=== PATIENT | male | born 1975 | race Hispanic/Latino ===

== ENCOUNTER 2021-05-01 11:57 | Emergency (ER) | payer SELFPAY ==
[2021-05-01 12:41] LABS: Urine Blood 1+ (Negative); Urine Glucose 1+ (Negative); Urine Protein 2+ (Negative)
--- NOTE | 2021-05-01 12:48 | RAD REPORT ---
EXAM DESCRIPTION: CT - Stone Protocol - 05/01/2021 12:37 pm CLINICAL HISTORY: ABD PAIN COMPARISON: No comparisons TECHNIQUE: Axial 3 mm thick images were obtained without oral or IV contrast. The [id number] span s the entirety of the system including uppermost abdomen and lung bases. All CT scans are performed using dose optimization technique as appropriate and may include automated exposure control or mA/KV adjustment according to patient size. FINDINGS: Mild left-sided hydronephrosis is present down to the left UVJ where there is a 4 millimet er obstructing calculus. No other left-side obstructing or nonobstructing calculi. No right-sided hyd ronephrosis or right-sided calcification. No suspicious renal masses. Isodense masses and pyelonephri tis are not excluded on a stone protocol CT scan. No significant adrenal finding. Urinary bladder is fully contracted limiting detail. No bladder calculi. Imaged portions of the liver, spleen and pancreas show no suspicious findings on non-contrast imaging . No gallbladder or biliary tree abnormality identified. No suspicious bowel findings. No hernia, mass or bulky lymphadenopathy noted. No free air, free fluid or inflammatory stranding. No significant bony abnormality. A 7 millimeter noncalcified nodule is seen in the anterolateral right lower lobe (image 3/168). A 3 m illimeter noncalcified nodule is present in the lateral left lower lobe (image 2/168). No acute infil trate. No pneumothorax or pleural effusion. No pericardial thickening or effusion. Endplate degenerative changes are present in the lower thoracic spine. No acute bone finding identifi able. IMPRESSION: Mild left-sided hydronephrosis secondary to an obstructing 4 mm left UVJ calculus. Isodense masses and pyelonephritis are not excluded on stone protocol technique. Patient has 7 mm and 3 mm noncalcified pulmonary nodules in the lower lung mendoza. Zhannaischner 2017 re commendations would be follow-up imaging in 6 months with a 18-24 months imaging considered if the pa tient is low risk or obtained if the patient is high risk. Of note, the lung mendoza are only partially imaged. The patient could have other pulmonary nodules th at may be larger in size or have different imaging characteristics. Follow-up outpatient CT chest chay ging or lung cancer CT chest screening study could be performed as warranted.
[2021-05-01 12:53] LABS: Absolute Lymphocytes (CBC) 1.5 K/uL (0.7-4.9); Basophils % 0.5 % (0-1.3); Hematocrit 44.8 % (39.6-49.0); Lymphocytes % 16.5 % (15.3-44.8); MPV 7.8 fL (7.6-11.3); RBC Red Blood Cell Count 4.81 M/uL (4.33-5.43)
[2021-05-01 13:13] LABS: Albumin 3.7 g/dL (3.4-5.0); Bilirubin Direct 0.1 mg/dL (0-0.2); Bilirubin Total 0.5 mg/dL (0.2-1.0); Protein, Total 7.4 g/dL (6.4-8.2)
[2021-05-01] MEDS ORDERED: MORPHINE 4 MG/ML SYR ONE (13:33)
[2021-05-01] MEDS ORDERED: NA CHLORIDE 0.9% 500 ML ONE (13:33)
[2021-05-01] MEDS ORDERED: CEFTRIAXONE/SWI 1gm 1 GM/10 ML SYR ONE (13:33)
[2021-05-01] MEDS ORDERED: ONDANSETRON 4 MG/2 ML VIAL ONE (13:33)
--- NOTE | 2021-05-01 14:09 | EDPHYS ---
Physician Documentation [facility] Name: Greg Matamoros Age: 45 yrs Sex: Male : 1975 Arrival Date: 05/01/2021 Time: 12:00 Bed 12 Private MD: ED Physician Alirio Vanegas HPI: 05/01 12:26 This 45 yrs old Male presents to ER via Ambulatory with complaints of Back jr8 Pain, Blood in Urine. 12:26 Patient complains of suprapubic pain radiating to left flank that started 2 days ago. jr8 Was seen at urgent care today and told he had a urinary tract infection and to come to the emergency room for further evaluation. Denies fevers. The patient has not experienced similar symptoms in the past. The patient has not recently seen a physician. Historical: - Allergies: 12:15 No Known Allergies; tw2 - Home Meds: 12:15 None [Active]; tw2 - PMHx: 12:15 None; tw2 - PSHx: 12:15 None; tw2 - Immunization history:: Adult Immunizations. - Social history:: Smoking status: . ROS: 12:26 Eyes: Negative for injury, pain, redness, and discharge, ENT: Negative for injury, jr8 pain, and discharge, Neck: Negative for injury, pain, and swelling, Cardiovascular: Negative for chest pain, palpitations, and edema, Respiratory: Negative for shortness of breath, cough, wheezing, and pleuritic chest pain, MS/Extremity: Negative for injury and deformity, Skin: Negative for injury, rash, and discoloration, Neuro: Negative for headache, weakness, numbness, tingling, and seizure. 12:26 Abdomen/GI: Positive for abdominal pain, Negative for nausea, vomiting, and diarrhea. 12:26 Back: Positive for flank pain, on the left. 12:26 : Positive for urinary symptoms. Exam: 12:26 Constitutional: This is a well developed, well nourished patient who is awake, alert, jr8 and in no acute distress. Cardiovascular: Regular rate and rhythm with a normal S1 and S2. No gallops, murmurs, or rubs. Normal PMI, no JVD. No pulse deficits. Respiratory: Lungs have equal breath sounds bilaterally, clear to auscultation and percussion. No rales, rhonchi or wheezes noted. No increased work of breathing, no retractions or nasal flaring. Back: No spinal tenderness. No costovertebral tenderness. Full range of motion. Skin: Warm, dry with normal turgor. Normal color with no rashes, no lesions, and no evidence of cellulitis. MS/ Extremity: Pulses equal, no cyanosis. Neurovascular intact. Full, normal range of motion. Neuro: Awake and alert, GCS 15, oriented to person, place, time, and situation. Cranial nerves II-XII grossly intact. Motor strength 5/5 in all extremities. Sensory grossly intact. Cerebellar exam normal. Normal gait. 12:26 Abdomen/GI: Inspection: abdomen appears normal, Bowel sounds: active, all quadrants, Palpation: soft, in all quadrants, mild abdominal tenderness, in the suprapubic area, mass, is not appreciated, rebound tenderness, is not appreciated, voluntary guarding, is not appreciated, involuntary guarding, is not appreciated, no appreciated organomegaly, Indicators: McBurney's point is not tender, Macias's sign is negative, Rovsing's sign is negative, Liver: tenderness, is not appreciated. Vital Signs: 12:16 BP 147 / 96; Pulse 74; Resp 17; Temp 97.9(TE); Pulse Ox 100% on R/A; tw2 MDM: 12:25 Patient medically screened. [facility] 14:08 Data reviewed: vital signs, nurses notes, lab test result(s), radiologic studies, CT jr8 scan. Data interpreted: Pulse oximetry: on room air is 100 %. Interpretation: normal. Counseling: I had a detailed discussion with the patient and/or guardian regarding: the historical points, exam findings, and any diagnostic results supporting the discharge/admit diagnosis, lab results, radiology results, the need for outpatient follow up, a urologist, to return to the emergency department if symptoms worsen or persist or if there are any questions or concerns that arise at home. Response to treatment: the patient's symptoms have markedly improved after treatment. ED course: Feeling a lot better. Will follow up with urology in the next day or 2. Patient knows to come back if he starts to run fever, cannot keep medicine down, or has worsening of pain.. 05/01 12:16 Order name: Amylase, Serum; Complete Time: 13:27 tw2 05/01 12:16 Order name: Hepatic Function; Complete Time: 13:27 tw2 05/01 12:16 Order name: Lipase; Complete Time: 13:27 tw2 05/01 12:19 Order name: CBC with Diff mh5 05/01 12:20 Order name: CBC with Automated Diff; Complete Time: 12:58 EDMS 05/01 12:16 Order name: CT Stone Protocol; Complete Time: 12:58 tw2 05/01 12:41 Order name: Urine Dipstick-Ancillary; Complete Time: 12:58 EDMS 05/01 12:16 Order name: IV Start; Complete Time: 12:45 tw2 05/01 12:16 Order name: Urine Dipstick-Ancillary (obtain specimen); Complete Time: 12:45 tw2 Administered Medications: 13:18 Drug: morphine 4 mg Route: IVP; Site: right antecubital; iw 13:50 Follow up: Response: No adverse reaction iw 13:19 Drug: Zofran (Ondansetron) 4 mg Route: IVP; Site: right antecubital; iw 13:30 Follow up: Response: No adverse reaction iw 13:19 Drug: Rocephin (cefTRIAXone) 1 grams Route: IV; Rate: calculated rate; Site: right iw antecubital; 13:30 Follow up: IV Status: Completed infusion iw 13:19 Drug: NS 0.9% 500 ml Route: IV; Rate: bolus; Site: right antecubital; iw 13:50 Follow up: IV Status: Completed infusion iw 14:24 Not Given (Patient Refused): Ketorolac 15 mg IVP once iw Disposition: 16:03 Co-signature as Attending Physician, Alirio Vanegas MD I agree with the assessment and lucio plan of care. Disposition Summary: 05/01/21 14:09 Discharge Ordered Location: Home jr8 Problem: new jr8 Symptoms: have improved jr8 Condition: Stable jr8 Diagnosis - Hydronephrosis with renal and ureteral calculous obstruction jr8 - UTI/ Urinary tract infection, site not specified jr8 Followup: jr8 - With: Faheem Kaiser MD - When: 2 - 3 days - Reason: Recheck today's complaints, Continuance of care, Re-evaluation by your physician Discharge Instructions: - Discharge Summary Sheet jr8 - Kidney Stones jr8 - Hydronephrosis jr8 Forms: - Medication Reconciliation Form jr8 - Thank You Letter jr8 - Antibiotic Education jr8 - Prescription Opioid Use jr8 Prescriptions: - acetaminophen-codeine 300-15 mg Oral tablet - take 2 tablet by ORAL route every 6 hours As needed as needed; 20 tablet; jr8 Refills: 0, Product Selection Permitted - Cipro 500 mg Oral Tablet - take 1 tablet by ORAL route every 12 hours for 10 days; 20 tablet; Refills: 0, jr8 Product Selection Permitted - tamsulosin 0.4 mg Oral capsule - take 1 capsule by ORAL route Every night; 7 capsule; Refills: 0, Product jr8 Selection Permitted - Zofran 4 mg Oral Tablet - take 1 tablet by ORAL route every 12 hours As needed; 20 tablet; Refills: 0, jr8 Product Selection Permitted Signatures: Dispatcher [employer] Alirio Brock MD MD cha Williams, Irene, RN RN iw Ruddy Rico PA PA jr8 Anne-Marie Sandhu RN RN tw2
--- NOTE | 2021-05-01 14:09 | ER ---
Nurse's Notes [facility] Name: Greg Matamoros Age: 45 yrs Sex: Male : 1975 Arrival Date: 05/01/2021 Time: 12:00 Bed 12 Private MD: Diagnosis: Hydronephrosis with renal and ureteral calculous obstruction;UTI/ Urinary tract infection, site not specified Presentation: 05/01 12:14 Chief complaint: Spouse and/or significant other states: he mentioned to me on Tuesday tw2 that he is feeling tender is his bladder area. blood in urine. Coronavirus screen: At this time, the client does not indicate any symptoms associated with coronavirus-19. Ebola Screen: Patient denies travel to an Ebola-affected area in the 21 days before illness onset. Initial Sepsis Screen: Does the patient meet any 2 criteria? No. Patient's initial sepsis screen is negative. Does the patient have a suspected source of infection? No. Patient's initial sepsis screen is negative. Risk Assessment: Do you want to hurt yourself or someone else? Patient reports no desire to harm self or others. Onset of symptoms was May 01, 2021. 12:14 Method Of Arrival: Ambulatory tw2 12:14 Acuity: FLOYD 3 tw2 Triage Assessment: 12:17 General: Appears in no apparent distress. uncomfortable, Behavior is calm, cooperative, tw2 appropriate for age. Pain: Complains of pain in abdomen. GI: Reports lower abdominal pain, upper abdominal pain. :. Musculoskeletal: Range of motion: intact in all extremities. Historical: - Allergies: 12:15 No Known Allergies; tw2 - Home Meds: 12:15 None [Active]; tw2 - PMHx: 12:15 None; tw2 - PSHx: 12:15 None; tw2 - Immunization history:: Adult Immunizations. - Social history:: Smoking status: . Screenin:46 Abuse screen: Denies threats or abuse. Denies injuries from another. Nutritional iw screening: No deficits noted. Tuberculosis screening: No symptoms or risk factors identified. Fall Risk IV access (20 points). Assessment: 14:24 Reassessment: Patient appears in no apparent distress at this time. Patient and/or iw family updated on plan of care and expected duration. Pain level reassessed. Patient is alert, oriented x 3, equal unlabored respirations, skin warm/dry/pink. Vital Signs: 12:16 BP 147 / 96; Pulse 74; Resp 17; Temp 97.9(TE); Pulse Ox 100% on R/A; tw2 ED Course: 12:00 Patient arrived in ED. ds1 12:15 Triage completed. tw2 12:15 Arm band placed on. tw2 12:25 [facility] jr[facility] 12:25 Alirio Vanegas MD is Attending Physician. jr8 12:36 CT Stone Protocol In Process Unspecified. EDMS 12:45 Yadira Henry, RN is Primary Nurse. iw 12:45 Inserted saline lock: 20 gauge in right antecubital area, using aseptic technique. iw Blood collected. IV inserted by JUAN Carbone. 14:08 Faheem Kaiser MD is Referral Physician. jr8 Administered Medications: 13:18 Drug: morphine 4 mg Route: IVP; Site: right antecubital; iw 13:50 Follow up: Response: No adverse reaction iw 13:19 Drug: Zofran (Ondansetron) 4 mg Route: IVP; Site: right antecubital; iw 13:30 Follow up: Response: No adverse reaction iw 13:19 Drug: Rocephin (cefTRIAXone) 1 grams Route: IV; Rate: calculated rate; Site: right iw antecubital; 13:30 Follow up: IV Status: Completed infusion iw 13:19 Drug: NS 0.9% 500 ml Route: IV; Rate: bolus; Site: right antecubital; iw 13:50 Follow up: IV Status: Completed infusion iw 14:24 Not Given (Patient Refused): Ketorolac 15 mg IVP once iw Outcome: 14:09 Discharge ordered by . ashish 14:24 Patient left the ED. iw Signatures: Dispatcher [employer] [facility] Eileen Connelly ds1 Yadira Henry RN RN iw Ruddy Rico PA PA jr8 Anne-Marie Sandhu RN RN tw2
[2021-05-01 14:32] VITALS: BP 147/96; TEMP 97.9; O2SAT 100
== END 2021-05-01 14:24 | disposition home or self-care (01) ==
LOC: ER 11:57
DX: N13.2 Hydronephrosis with renal and ureteral calculous obstruction (principal); N39.0 Urinary tract infection, site not specified
CPT/HCPCS: 36415; 74176; 76377; 80076; 81003; 82150; 83690; 85025; 96361; 96374; 96375; 99284; J0696; J2405; J7040